=== PATIENT | female | born 1970 | race Two or more races ===

== ENCOUNTER 2024-07-12 04:05 | Emergency (ER) | payer OTHER ==
[~2024-07-12] VITALS: Ht 162.6 cm; Wt 72.1 kg
[2024-07-12] MEDS ORDERED: DIPHENHYDRAMINE HCL 50 MG/ML VIAL 1ML IM STA (05:31)
[2024-07-12] MEDS ORDERED: KETOROLAC TROMETHAMINE 60 MG VIAL IM STA (05:31)
[2024-07-12] MEDS ORDERED: HALOPERIDOL LACTATE 5 MG/ML AMPUL IM STA (05:31)
[2024-07-12] MEDS ORDERED: DIPHENHYDRAMINE HCL 50 MG/ML VIAL 1ML ONE (05:36)
[2024-07-12] MEDS ORDERED: HALOPERIDOL LACTATE 5 MG/ML AMPUL ONE (05:37)
[2024-07-12] MEDS ORDERED: KETOROLAC TROMETHAMINE 60 MG VIAL IM ONE (05:37)
== END 2024-07-12 08:09 | disposition home or self-care (01) ==
LOC: ER 04:06
DX: G43.909 Migraine, unspecified, not intractable, without status migrainosus (principal)
CPT/HCPCS: 96372; 99282; J1200; J1885; J3490